=== PATIENT | male | born 1970 ===

== ENCOUNTER 2019-12-28 19:40 | Outpatient (CLI) | payer SELFPAY | END 2019-12-28 19:41 | disposition EMS.NT | LOC: EMS 19:40 | PROVIDERS: ATTEND Surgery | DX: S00.81XA Abrasion of other part of head, initial encounter (principal); S80.812A Abrasion, left lower leg, initial encounter; S80.811A Abrasion, right lower leg, initial encounter; X58.XXXA Exposure to other specified factors, initial encounter; Y93.89 Activity, other specified; Y92.832 Beach as the place of occurrence of the external cause ==